=== PATIENT | female | born 1945 | race Caucasian/White ===

== ENCOUNTER 2020-06-24 15:13 | Outpatient (NON) | payer MEDICARE, OTHER, SELFPAY | END 2020-06-24 15:14 | LOC: HOME HLTH 15:18 | PROVIDERS: PCP Internal Medicine; Visit Provider Urology | DX: N39.0 Urinary tract infection, site not specified (principal); Z46.6 Encounter for fitting and adjustment of urinary device | CPT/HCPCS: 87077; 87086; 87088; 87186 ==

== ENCOUNTER 2020-07-09 13:23 | Outpatient (NON) | payer MEDICARE, OTHER, SELFPAY | END 2020-07-09 13:24 | LOC: CHSHH 13:27 | PROVIDERS: Visit Provider Urology | DX: N39.0 Urinary tract infection, site not specified (principal) | CPT/HCPCS: 87086 ==

== ENCOUNTER 2020-07-24 10:45 | Outpatient (NON) | payer MEDICARE, OTHER, SELFPAY ==
[2020-07-24 11:53] LABS: Basophils Absolute Auto 0.1 K/mm3 (0.0-0.1); Basophils Percent Auto 0.8 % (0.2-1.2); Eosinophils Absolute Auto 0.6 K/mm3 (0-0.3); Eosinophils Percent Auto 4.6 % (0-4.4); Hematocrit 36.8 % (37.0-47.0); Hemoglobin 12.3 g/dL (12.0-15.0); Immature Granulocyte Absolute 0.12 K/mm3 (0.00-0.031); Lymphocytes Absolute Auto 2.33 K/mm3 (0.9-3.2); Lymphocytes Percent Auto 18.7 % (18.3-44.2); Mean Corpuscular HGB Conc 33.4 g/dl (32-36); Mean Corpuscular Hemoglobin 29.3 pg (26-34); Mean Corpuscular Volume 87.6 fl (80-100); Mean Platelet Volume 10.4 fl (7.4-10.4); Monocytes Absolute Auto 0.7 K/mm3 (0.1-0.6); Monocytes Percent Auto 5.9 % (2.6-8.5); Neutrophils Absolute Auto 8.6 K/mm3 (1.3-6.7); Platelet Count Result 235 k/mm3 (150-375); Red Cell Distribution Width 13.9 % (11.5-14.5); White Blood Count 12.4 K/mm3 (4.5-10.0)
[2020-07-24 12:04] LABS: Alanine Aminotransferase 12 U/L (4-35); Albumin Level 3.3 g/dL (3.5-5.1); Alkaline Phosphatase 113 U/L (38-126); Anion Gap 6 mmol/L (8-16); Aspartate Amino Transferase 16 U/L (14-36); Bilirubin,Total 0.4 mg/dL (0.2-1.3); Blood Urea Nitrogen 29 mg/dL (7-17); Calcium 8.8 mg/dL (8.4-10.2); Carbon Dioxide 26 mmol/L (22-30); Chloride 106 mmol/L (98-107); Cholesterol 177 mg/dL (0-200); Estimated Glomerular Filt Rate 34; Glucose 216 mg/dL (65-105); HDL Direct 22 mg/dL; Potassium 3.9 mmol/L (3.4-5.0); Sodium 138 mmol/L (137-145); Triglycerides 303 mg/dL (<150)
[2020-07-24 12:05] LABS: Creatinine Urine 22.2 mg/dL
[2020-07-24 12:13] LABS: Hemoglobin A1C 8.7 % (<5.7)
[2020-07-24 12:15] LABS: LDL Cholesterol Direct 104 mg/dL
[2020-07-24 12:43] LABS: Free T4 Free Thyroxine 1.25 ng/mL (0.78-2.19)
[2020-07-24 12:58] LABS: Microalbumin Urine Random 742.5 mg/L (0-16.7)
[2020-07-24 13:10] LABS: Folic Acid 3.9 ng/mL (2.76->20)
== END 2020-07-24 10:46 ==
PROVIDERS: PCP Internal Medicine; Visit Provider Internal Medicine
DX: R53.83 Other fatigue (principal); E78.00 Pure hypercholesterolemia, unspecified; E03.9 Hypothyroidism, unspecified; E11.9 Type 2 diabetes mellitus without complications
CPT/HCPCS: 80053; 80061; 82043; 82607; 82746; 83036; 84439; 84443; 85025

== ENCOUNTER 2021-02-05 13:26 | Emergency (ER) | payer MEDICARE, OTHER, SELFPAY ==
--- NOTE | ~2021-02-05 | US_ITS ---
EXAMINATION: US art doppler w vicente QUIROZ EXAM DATE: 02/05/2021 15:32 INDICATION: Right toe gangrene. Arteriosclerosis. Hypertension. TECHNIQUE: Segmental pressures and plethysmographic and Doppler waveforms of the brachial and lower e xtremity arteries were obtained. There is no prior study for comparison. FINDINGS: Right and left brachial artery pressures of 170 mm Hg and 139 mm Hg, respectively, are discordant (no rmal difference <= 30 mmHg). The right and left thigh-brachial pressure indices are 0.71, 0.71, resp ectively (normal > 1.2). RIGHT LEG: The ankle-brachial index (CHASE) is 0.37 (normal >= 0.9-1). The great toe-brachial index (TBI) is 0.10 (normal >= 0.65). The lower extremity ratios, segmental pressure gradients as follows; Proximal superficial femoral artery:- 0.71 (121 mmHg). Distal superficial femoral artery: ----- 0.49 (83 mmHg). Popliteal: 0.35 (59 mmHg). Dorsalis pedis: 0.37 (63 mmHg). Posterior tibial: No flow detected ( mmHg). (Normal gradients <= 20-30 mmHg between adjacent levels on the same leg or the same levels on the two legs). Arterial waveforms are monophasic and dampened. LEFT LEG: The ankle-brachial index (CHASE) is 0.51 (normal >= 0.9-1). The great toe-brachial index (TBI) is 0.32 (normal >= 0.65). The lower extremity ratios, segmental pressure gradients as follows; Proximal superficial femoral artery:- 0.71 (121 mmHg). Distal superficial femoral artery: ----- 0.51 (87 mmHg). Popliteal: 0.52 (88 mmHg). Dorsalis pedis: 0.51 (86 mmHg). Posterior tibial: No flow detected ( mmHg). (Normal gradients <= 20-30 mmHg between adjacent levels on the same leg or the same levels on the two legs). Arterial waveforms are monophasic and dampened. IMPRESSION: 1. Right ankle-brachial index 0.37, moderate to severely decreased. 2. Left ankle-brachial index 0.51, moderately decreased. 3. No arterial flow detected in PT arteries bilaterally. 4. Brachial pressure discrepancy which could indicate left subclavian arterial sclerosis, stenosis. Consider carotid ultrasound to exclude subclavian steal syndrome. Reviewed, dictated and finalized at location A. IMPRESSION: 1. Right ankle-brachial index 0.37, moderate to severely decreased. 2. Left ankle-brachial index 0.51, moderately decreased. 3. No arterial flow detected in PT arteries bilaterally. 4. Brachial pressure discrepancy which could indicate left subclavian arterial sclerosis, stenosis. Consider carotid ultrasound to exclude subclavian steal s yndrome.
--- NOTE | ~2021-02-05 | XR_ITS ---
EXAMINATION: XR foot RT min 3V DATE: 02/05/2021 14:31 INDICATION: Right great toe gangrene TECHNIQUE: Dorsoplantar, two oblique and lateral views of the right foot were obtained. COMPARISON: None. FINDINGS: Diffuse osteopenia which decreases sensitivity for subtle erosions are nondisplaced fractures. Sugges tion of old healed fracture deformities at the necks of the second, third and potentially fifth metat arsals. No acute fractures identified. The toes are clawed. Mild polyarticular osteoarthritis through out the right foot. There is loss of soft tissue coverage overlying the tuft of the first distal phal anx where there is evidence of ostial lysis. A couple images is does not appear peripherally corticat ed which would be consistent with acute or ongoing osteomyelitis. No other definitive erosions to sug gest additional osteomyelitis. IMPRESSION: 1. Erosion which appears relatively acute involving the tuft of the right first distal phalanx consis tent with osteomyelitis. 2. No other acute osseous abnormality or other erosions suspicious for osteomyelitis although sensiti vity is decreased by marked osteopenia throughout the right foot. 3. Mild polyarticular osteoarthritis throughout the right foot. Reviewed, dictated and finalized at location A. IMPRESSION: 1. Erosion which appears relatively acute involving the tuft of the right first distal phalanx consistent with osteomyelitis. 2. No other acute osseous abnormality or other erosions suspicious for osteomye litis although sensitivity is decreased by marked osteopenia throughout the rig ht foot. 3. Mild polyarticular osteoarthritis throughout the right foot.
[2021-02-05 13:30] VITALS: BP 150/66; PULSE 73; RESP 20; TEMP 36.7; O2SAT 100
[2021-02-05 13:35] VITALS: BP 150/66; PULSE 75; RESP 16; O2SAT 99
[2021-02-05 13:46] VITALS: BP 130/64; PULSE 75; RESP 18; O2SAT 100
[2021-02-05 15:44] VITALS: BP 133/78; PULSE 74; RESP 20; O2SAT 100
[2021-02-05 16:04] LABS: Basophils Absolute Auto 0.1 K/mm3 (0.0-0.1); Basophils Percent Auto 0.7 % (0.2-1.2); Eosinophils Absolute Auto 0.4 K/mm3 (0-0.3); Hematocrit 39.7 % (37.0-47.0); Hemoglobin 13.2 g/dL (12.0-15.0); Immature Granulocyte Absolute 0.05 K/mm3 (0.00-0.031); Immature Granulocyte Percent A 0.4 % (0-0.5); Lymphocytes Percent Auto 9.4 % (18.3-44.2); Mean Corpuscular HGB Conc 33.2 g/dl (32-36); Mean Corpuscular Hemoglobin 29.7 pg (26-34); Mean Corpuscular Volume 89.2 fl (80-100); Mean Platelet Volume 9.6 fl (7.4-10.4); Monocytes Absolute Auto 0.8 K/mm3 (0.1-0.6); Monocytes Percent Auto 5.5 % (2.6-8.5); Neutrophils Absolute Auto 11.2 K/mm3 (1.3-6.7); Platelet Count Result 297 k/mm3 (150-375); Red Blood Count 4.45 M/mm3 (4.2-5.4); Red Cell Distribution Width 13.4 % (11.5-14.5); White Blood Count 13.8 K/mm3 (4.5-10.0)
[2021-02-05 16:18] LABS: Anion Gap 10 mmol/L (8-16); Blood Urea Nitrogen 17 mg/dL (7-17); CRP 4.3 mg/dL (<1.0); Calcium 8.8 mg/dL (8.4-10.2); Carbon Dioxide 26 mmol/L (22-30); Chloride 104 mmol/L (98-107); Estimated CRCL calculation 31 ml/min; Estimated Glomerular Filt Rate 40; Glucose 278 mg/dL (65-110); Potassium 3.9 mmol/L (3.4-5.0); Sodium 140 mmol/L (137-145)
--- NOTE | 2021-02-05 16:39 | PC.NURSE ---
Care Coord. notified to see pt per req of Dr. Fischer .
[2021-02-05 16:45] LABS: Erythrocyte Sedimentation Rate > 140 mm/hr (0-20)
--- NOTE | 2021-02-05 16:48 | ED.EXTPRO ---
HPI - Extremity Problem General Chief complaint: Extremity Problem,Nontraumatic Stated complaint: toe Time Seen by Provider: 02/05/21 13:54 Source: patient and other Mode of arrival: EMS Limitations: no limitations History of Present Illness HPI Narrative: 75-year-old female Here to have the toes of her right foot checked Apparently toes 1 through 3 on the right foot have been essentially black and discolored since mid summer some time It sounds like home health has been seeing her and reporting back to her primary physician, but for whatever reason the patient has been either unable or unwilling to be evaluated for this in the roughly 10 weeks that its been going on Patient states that her usual caregiver is on vacation in [place] and the new person who was not used to the appearance of her toes made her come to the hospital today They are not painful She does not have any other acute complaints, she is generally weak, she has an indwelling Cornejo Related Data Home Medications Medication Instructions Recorded Confirmed blood sugar diagnostic #10 each 05/31/19 07/27/20 lancets #50 each 05/31/19 07/27/20 cephalexin 500 mg capsule 500 mg PO Q12H 07/27/20 07/27/20 tolterodine [Detrol LA] mg PO 02/05/21 Allergies Allergy/AdvReac Type Severity Reaction Status Date / Time metformin Allergy Unknown Unknown Verified 02/05/21 15:33 Penicillins Allergy Unknown Unknown Verified 02/05/21 15:33 Review of Systems Constitutional: Constitutional: Denies chills, Reports fatigue, Denies fever(s) and Reports weakness Respiratory: Respiratory: Denies cough and Denies dyspnea Gastrointestinal: Gastrointestinal: Denies vomiting Genitourinary: Comments: Catheter in Neurologic: Reports weakness PMFSH Family History Family History Mother Patient's mother is Father Patient's father is Acute myocardial infarction Sibling Acute myocardial infarction Social History Social History Smoking status: Never smoker Second hand tobacco smoke exposure: No Alcohol intake: never Exam Const: General: cooperative, no acute distress and alert Orientation/consciousness: patient oriented x3 (alert) HENMT: Head: normal to inspection, normocephalic and atraumatic Ears: external ears normal General nose exam: no epistaxis Eyes: Conjunctivae: conjunctivae normal EOM: EOMs intact bilaterally Neck: Neck: normal visual inspection, supple and no JVD Resp: Effort & Inspection: normal respiratory effort and not labored Auscultation: other (BS =) Skin: General skin exam: normal color and no rashes or lesions noted Neuro: General: patient oriented x3 (alert) and moves all extremities Speech: normal speech Extrem: Other: Pulses in the right foot are not palpable Cap refill in the fifth toe is slowed Toes 1 through 3 have dry gangrene which is fairly well demarcated Maybe only a millimeter or 2 of erythema at the border and nothing proximal Psych: Affect: normal affect Course Course Emergency Course: This is been present times many weeks with no acute change or symptomatology Discussed with Dr. Jurado Discussed with Dr. Soto, will get some noninvasive studies and an x-ray and some blood work done, and he can see her in the wound clinic here on Monday Discussed with case management to facilitate her transportation Vital Signs Vital signs: Vital Signs Temperature 36.7 C 02/05/21 13:30 Pulse Rate 73 02/05/21 13:30 Respiratory Rate 20 02/05/21 13:30 Blood Pressure 150/66 H 02/05/21 13:30 Pulse Oximetry 100 02/05/21 13:30 Temperature 36.7 C 02/05/21 13:30 Pulse Rate 73 02/05/21 13:30 Respiratory Rate 20 02/05/21 13:30 Blood Pressure 150/66 H 02/05/21 13:30 Pulse Oximetry 100 02/05/21 13:30 MDM - Ex
--- NOTE | 2021-02-05 17:52 | PCCCNOTE ---
Provided information regarding ambulance transportation for medical services. Per [facility] at [facility], patient lives on the 2nd floor and requires a team of 6 people to carry patient down the stairs as patient is unable to bear weight. Health aide is unable to provide assistance. When asked what she would do if there was a house fire the patient stated that she would have to crawl and hope she could make it out.
--- NOTE | 2021-02-05 17:58 | PC.NURSE ---
Pt and care given state the follow up appt at wound center on Monday, Just will not work. I have to get a diaper change an a bath and my caregiver doesn't arrive until 0900. There is no way for us to change everything for that appointment. Encouraged to attempt to keep importance due to the severity of the foot and need to have follow up. [facility] states they will not make appt. Encouraged to call wound center first thing Monday to discuss options. BLS called for transportation to return home.
--- NOTE | 2021-02-05 18:03 | PC.NURSE ---
[facility] ETA 20p Trip #[id number]
--- NOTE | 2021-02-05 20:30 | PC.NURSE ---
New ETA provided per [id number]. Pt and caregiver informed.
--- NOTE | 2021-02-05 22:30 | PC.NURSE ---
Moved to room H3, report to MARCOS Newton.
--- NOTE | 2021-02-06 04:20 | PC.NURSE ---
New ETA is 0630am for transport.
[2021-02-06 05:16] VITALS: BP 137/61; PULSE 67; RESP 16; O2SAT 99
--- NOTE | 2021-02-06 05:34 | PC.NURSE ---
updated pt, emptied Cornejo catheter, and repositioned.
--- NOTE | 2021-02-06 07:00 | PC.NURSE ---
new ETA is 1030 for transfer
[2021-02-06 09:46] VITALS: BP 151/67; PULSE 78; RESP 16; O2SAT 100
[2021-02-06] MEDS: amLODIPine BESYLATE 5 MG TABLET PO (10:52)
[2021-02-06] MEDS: glipiZIDE 5 MG TABLET PO (10:53)
[2021-02-06 13:28] VITALS: BP 144/64; PULSE 79; RESP 16; O2SAT 99
--- NOTE | 2021-03-03 11:20 | PC.NURSE ---
LATE ENTRY This note is being entered to document information to the patient's record. The following information was incorrectly entered on [02/05/2021], by [Isabel Condon RN]. Initial assessment states left foot but correct foot of question is Right toes.
== END 2021-02-06 14:15 | disposition home or self-care (01) ==
PROVIDERS: Emergency Provider Emergency Medicine; PCP Internal Medicine
DX: I96 Gangrene, not elsewhere classified (principal); R93.6 Abnormal findings on diagnostic imaging of limbs; M19.071 Primary osteoarthritis, right ankle and foot
CPT/HCPCS: 36415; 73630; 80048; 85025; 85652; 86140; 93923; 99284; A9270

== ENCOUNTER 2021-02-19 08:47 | Outpatient (RCR) | payer MEDICARE, OTHER, SELFPAY ==
[2021-02-19 09:41] VITALS: BMI 28.3
--- NOTE | 2021-02-19 10:44 | PM.CNOR ---
Assessment and Plan Assessment and plan (1) Gangrenous toe: Code(s): I96 - Gangrene, not elsewhere classified Status: Inactive Assessment and Plan: New patient evaluation for chief complaint right toe gangrene. History, physical exam and radiographs reviewed with the patient And family. Discussed the condition, nature, etiology and course of natural history with the patient. absent blood flow to both feet. Patient nonambulatory. Right hallux 2nd and 3rd toe gangrene. Treatment options including surgical and nonoperative treatment were reviewed. Risks and benefits of each as well as alternatives reviewed. The patient's questions were answered. Conservative treatment Betadine ointment and dressing changes. if patient desires operative treatment we have discussed chance for healing with amputation. Indicated for transtibial amputation. 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 Most notably has necrosis of the right hallux 2nd and 3rd toe. This is been ongoing for several months per patient and family caregiver reports. No known injury. She also has wounds over the anterior left tibia. Home Health assisting with dressing changes. Otherwise patient and caregivers doing dressing changes. Patient is nonambulatory for the past 3 years. Review of Systems Constitutional: Constitutional: Denies fever(s) Eyes: Eyes: Denies blurry vision ENT: Reports Normal hearing present Cardiovascular: Cardiovascular: Denies chest pain and Denies dyspnea Respiratory: Respiratory: Denies dyspnea and Denies wheezing Gastrointestinal: Gastrointestinal: Denies abdominal pain Genitourinary: Genitourinary: Denies urinary urgency Musculoskeletal: Musculoskeletal: Reports as per HPI and Denies numbness Integumentary/Breasts: Skin/Breast: Denies changing lesions and Denies sores Neurologic: Reports Normal hearing present, Denies behavioral changes, Denies confusion, Denies numbness and Denies convulsions Psychiatric: Psychiatric: Denies behavioral changes, Denies confusion and Denies hallucinations Endocrine: Endocrine: Denies heat intolerance Hematologic/Lymphatic: Hematologic/Lymphatic: Denies easy bleeding Allergic/Immunologic: Allergic/Immunologic: Denies wheezing [facility] Past Medical History Medical History (Updated 02/19/21 @ 10:51 by Edgardo Soto MD) Peripheral arterial disease Family History Family History Mother Patient's mother is Father Patient's father is Acute myocardial infarction Sibling Acute myocardial infarction Social History Social History Smoking status: Never smoker Second hand tobacco smoke exposure: No Alcohol intake: never Meds Home Medications and Allergies
== END 2021-05-10 08:11 | disposition home or self-care (01) ==
LOC: ANHWOC 08:47
PROVIDERS: PCP Internal Medicine; Visit Provider Orthopaedic Surgery
DX: L97.519 Non-pressure chronic ulcer of other part of right foot with unspecified severity (principal); L97.919 Non-pressure chronic ulcer of unspecified part of right lower leg with unspecified severity; S80.812D Abrasion, left lower leg, subsequent encounter
CPT/HCPCS: 99212; G0463